=== PATIENT | male | born 1930 | race Caucasian/White ===

== ENCOUNTER 2017-09-12 03:50 | Inpatient (IN) | payer MEDICARE ==
[~2017-09-12] VITALS: Ht 185.4 cm; Wt 78.9 kg
[2017-09-12] VITALS (18 sets, daily range): BP systolic 41–247; BP diastolic 12–90
[2017-09-12] MEDS ORDERED: BAYER CHEWABLE81 MG PO (04:07)
[2017-09-12] MEDS ORDERED: LUMIGAN2.5 M1 OPHTHALMIC (04:09)
[2017-09-12] MEDS ORDERED: COLACE100 MG PO (04:10)
[2017-09-12] MEDS ORDERED: B12INJ (04:10)
[2017-09-12] MEDS ORDERED: IRON325 PO (04:10)
[2017-09-12] MEDS ORDERED: HYDROCODONE-AP1 EAC6 PO (04:12)
[2017-09-12 04:13] LABS: HEMATOCRIT 39.6 % (42.0-52.0); HEMOGLOBIN 12.4 gm/dL (14.0-18.0); MCH 28.2 pg (26.0-34.0); MCHC 31.2 g/dL (28.0-37.0); MCV 90.3 fL (80.0-100.0); MPV 10.3 fl. (7.2-11.1); NUCLEATED RBCS 0 /100WBC; PLATELET COUNT* 126 thou/uL (150-400); RBC 4.39 mil/uL (4.50-6.00); RDW-CV 16.5 % (10.5-14.5); WBC 11.4 thou/uL (4.0-11.0)
[2017-09-12] MEDS ORDERED: ZOCOR20 MG PO (04:13)
[2017-09-12] MEDS ORDERED: VITAMINC500 PO (04:14)
[2017-09-12] MEDS ORDERED: DEMECLOCYCLINE300 MG PO (04:14)
[2017-09-12] MEDS ORDERED: JUVEN PACKET1 EAC1 PO (04:14)
[2017-09-12] MEDS ORDERED: LOPRESSOR25 PO (04:15)
[2017-09-12] MEDS ORDERED: AUGMENTIN 875-1 EACH PO (04:16)
[2017-09-12] MEDS ORDERED: ACIDOPHILUS1 EAC3 PO (04:17)
[2017-09-12] MEDS ORDERED: NYAMYC15 GM TOP (04:18)
--- NOTE | 2017-09-12 04:20 | NUR ---
TALKED TO NURSE, VINCENZO AT [facility]. PT'S FAMILY HAS BEEN NOTIFIED. PT HAS HAD DIFFICULTY WITH CONSTIPATIO FOR A COUPLE OF DAYS. PT HAD BM TODAY
[2017-09-12] MEDS ORDERED: MIRALAX17 GM PO (04:21)
[2017-09-12 04:24] LABS: INR 1.1
[2017-09-12 04:25] LABS: ANION GAP 5 mmol/L (7-16); BUN 77 mg/dL (7-18); CALCIUM 9.5 mg/dL (8.5-10.1); CHLORIDE 101 mmol/L (98-107); CO2 31 mmol/L (21-32); CREATININE 1.3 mg/dL (0.6-1.3); GLUCOSE 100 mg/dL (70-99); POTASSIUM 5.3 mmol/L (3.5-5.1); SODIUM 137 mmol/L (136-145)
[2017-09-12 04:32] LABS: ALBUMIN 3.1 g/dL (3.4-5.0); ALKALINE PHOSPHATASE 218 U/L (46-116); LIPASE 67 U/L (73-393); SGOT 25 U/L (15-37); SGPT 26 U/L (30-65); TOTAL BILIRUBIN 0.8 mg/dL (<0.1-1.0); TOTAL PROTEIN 6.1 g/dL (6.4-8.2); TROPONIN-I LEVEL <0.06 ng/mL (<0.06)
[2017-09-12 05:46] LABS: ABSOLUTE LYMPHOCYTES 1.3 thou/uL (0.8-5.3); ABSOLUTE MONOCYTES 0.3 thou/uL (0.0-1.2); ABSOLUTE NEUTROPHILS 9.8 thou/uL (1.6-8.1); ANISOCYTOSIS 1+; PLATELET ESTIMATE DECREASED; POIKILOCYTOSIS 1+
[2017-09-12 07:03] LABS: URINE BILIRUBIN NEGATIVE (Negative); URINE BLOOD NEGATIVE (Negative); URINE CLARITY CLEAR; URINE COLOR YELLOW; URINE GLUCOSE-RANDOM NEGATIVE (Negative); URINE KETONES NEGATIVE (Negative); URINE LEUKOCYTES-REFLEX NEGATIVE (Negative); URINE NITRITE-REFLEX NEGATIVE (Negative); URINE PROTEIN 1+ (Negative); URINE UROBILINOGEN 0.2 E.U./dl (0.2-1.0)
[2017-09-12 07:19] LABS: BACTERIA-REFLEX None Seen /HPF (None Seen); MUCUS None Seen strn/LPF (None Seen); SQUAMOUS 0-3 Few /LPF (0-3); URINE RBC 0-2 Rare /HPF (0-2); URINE WBC-REFLEX 0-5 Rare /HPF (0-5)
[2017-09-12 07:20] LABS: CASTS None Seen /LPF (None Seen); CRYSTALS None Seen /LPF (None Seen)
--- NOTE | 2017-09-12 07:38 | NUR ---
PT'S SON, ANGELINA, WAS CALLED, PER REQUEST, TO TELL HIM HIS DAD IS BEING ADMITTED TO ROOM #229. ANGELINA VOICED APRECIATION FOR THE PHONE CALL.
[2017-09-12] MEDS ORDERED: MAALOX ADVANCE355 ML PO (08:40)
[2017-09-12] MEDS ORDERED: MICONAZOLE 745 GM TOP (08:45)
[2017-09-12] MEDS ORDERED: BISACODYL SUPP10 MG RECTAL (08:47)
[2017-09-12] MEDS ORDERED: MILK OF MA2400 MG/10 PO (08:48)
[2017-09-12] MEDS ORDERED: VITAMIN B-12500 MCG PO (08:49)
[2017-09-12] MEDS ORDERED: TYLENOL325 MG PO (08:53)
[2017-09-12] MEDS ORDERED: FLEET ENEMA133 ML RECTAL (08:53)
--- NOTE | 2017-09-12 08:57 | NUR ---
RECEIVED REPORT. PT TRANSFERRED TO ROOM 229 VIA CART. VSS. CARDIAC MONITORING IN PLACE. ADMISSION HISTORY AND ASSESSMENT COMPLETED CHARTED. PT ALERT AND ORIENTED. PT ON 2L PER NC. C-COLLAR IN PLACE FROM PREVIOUS FALL WITH FRACTURES. PT HAS VARIOUS SCABS ON BILATERAL UPPER EXTREMITIES. ALSO NOTED VARIOUS SKIN TEARS, EXCORIATION/YEAST NOTED TO BILATERAL GROINS, BOGGY HEELS, AND PRESSURE ULCER TO COCCYX ON ADMISSION PICUTRES TAKEN AND PLACED ON CHART. PT DENIES ANY CURRENT PAIN, HOWEVER GRIMACES WITH MOVEMENT. IVF INFUSING PER OFRDERS. PT ORIETNED TO ROOM AND CALL LIGHT. PT'S GRANDSON HERE TO VISIT PT. GRANDSON UNHAPPY PT IS AT [facility] STATING "I'VE HEARD BAD THINGS ABOUT THIS PLACE." REASSURANCE PROVIDED. MEPILEX BORDERS UNDER C-COLLER ON CHEST TO PREVENT BREAKDOWN. CALL LIGHT IS WITHIN REACH. FALL PRECATIONS IN PLACE. WILL CONTINUE TO MOTNIOR.
--- NOTE | 2017-09-12 10:09 | NUR ---
CM SPOKE TO THE PATIENT TO DISCUSS HOME SITUATION, DISCHARGE PLANNING, AND TO INFORM OF THE ROLE OF CM. PATIENT ALERT AND ORIENTED. PATIENT INDEPENDENT WITH ADL'S AND COOKS. PATIENT RESIDES AT HOME WITH SPOUSE. PATIENT INFORMS THAT HIS SON PROVIDES TRANSPORTATION TO APPOINTMENTS, AND HIS GRANDSON ASSIST WITH [employer] AND CLEANING HIS HOME. PATIENT USES A WALKER FOR MOBILITY. PATIENT HAS A HX OF HH, BUT COULD NOT RECALL THE NAME. [facility] CM WILL REMAIN AVAILABLE TO ASSIST AND FOLLOW NEEDED.
--- NOTE | 2017-09-12 16:28 | EKG ---
[place] [address] ELECTROCARDIOGRAM REPORT Name: ADA JUDD V Room: [address] IN .R.#: [id number] Admission: 09/12/17 Attend Phys: Srikanth Jones Discharge: Date of : [birth year] Report #: [id number] THIS REPORT FOR: //name// [facility] ED Test Date: 2017-09-12 Test Time: 04:07:15 Pat Name: ADA JUDD Department: Room: Gender: Band Tier: SARAN Huber : 1930 Requested By: Edd Hyatt Order Number: [id number] MD: Ada Huddleston Measurements Intervals [place] Rate: 114 P: [place]: QRS: 88 QRSD: 140 T: 15 QT: 393 QTc: 542 Interpretive Statements Atrial fibrillation Right bundle branch block No previous ECG available for comparison Electronically Signed On 09-12-2017 16:28:23 CDT by Ada Huddleston [email or web address] <ELECTRONICALLY SIGNED> By: Ada Huddleston MD, [facility] 09/12/17 1628 [id number] Ada Huddleston MD, FACC /EPI
[2017-09-12 17:20] LABS: CLARITY TURBID; COLOR TAN; SOURCE L PLEURAL; TOTAL VOLUME 60 ml
[2017-09-12 17:22] LABS: TOTAL CELL COUNT 142970 /mm3
[2017-09-12 17:24] LABS: BF RBC 35570 /mm3
--- NOTE | 2017-09-12 17:30 | NUR ---
164-PT BACK TO ROOM FROM THORACENTESIS. VSS. IVF RESTARTED. 1715 PT'S FAMILY CALLED OUT SAYING PT FELT SOA. UPON ASSESSMENT PT MORE PALE, DROWSY, BP STABLE HR IN THE 100'S O2 SAT IN THE 80'S INCREASED TO 4L PER NC PT'S RESPIRATIONS IN THE 30'S NOTIFIED DR. ANDRADE OF POSSIBLE NEEDS FOR LASIX. IV LASIX GIVEN AND ZOFRAN GIVEN. PT HAVING MORE ABDOMINAL PAIN. ABD SOFT BUT SLIGHTLY DISTENDED. DR. ANDRADE NOTIFIED OF ALL THE ABOVE AND RECEIVED ORDERS TO TRANSFER TO ICU. REPORT GIVEN TO KRISTOFER. PT'S FAMILY INFORMED.
[2017-09-12 17:54] LABS: BF LYMPHOCYTES ND %; BF MONOCYTES ND %
[2017-09-12 17:55] LABS: BF POLYS ND %
[2017-09-12 18:06] LABS: BE 1.4 mmol/L (-2 to +3); HCO3 26.7 mmol/L (22.0-26.0); PCO2 45.9 mmHg (35.0-45.0); pH 7.382 (7.340-7.450)
--- NOTE | 2017-09-12 19:41 | NUR ---
PATIENT ARRIVED AT 1810 FROM 2E. PATIENT LETHARGIC, BUT OX4. PATIENT EXTREMELY TACHYPNIC UPON ARRIVING, BUT RATING PAIN AT 10/[address] LUPE JEAN, PRN FENTANYL GIVEN. PATIENT ABLE TO REST COMFORTABLY FOR SHORT PERIOD OF TIME, BUT IS NOW AGAIN RESTLESS. UNABLE TO TAKE PO MEDICATIONS. DX OF COLITIS. PATIENT ALSO HAS VERY LARGE LEFT EMPYEMA PER CT/XRAY STUDIES. UPON ARRIVING, PATIENT ON 4L NC. ABG PO2 CRITICALLY HIGH ON 4L, TITRATED TO 2L. O2 SAT 99%. SPOKE WITH DR GUDION FROM PULMONOLOGY ABOUT DR. SÁNCHEZ'S PLANS TO TRANSFER PATIENT TO ANOTHER FACILITY WHO HAS A CARDIOTHORACIC SURGERON. DR GUDINO STATED DR SÁNCHEZ HAD DISCUSSED THIS WITH DR FOX, BUT THAT DR SÁNCHEZ WILL SEE PATIENT IN THE MORNING TO DISCUSS POSSIBLE TRANSFER. PATIENT TRACING A-FIB WITH CONTROLLED RATE AND RIGHT BUNDLE BRANCH BLOCK ON [employer]. PATIENT HAS MULTIPLE WOUNDS NOTED TO BOTTOM, NECK, AND SKIN TEAR TO RIGHT UPPER ARM. WOUND PHOTOS TAKEN BY MORNING RN. SWELLING NOTED TO BILATERAL LOWER EXTREMITIES. PATIENT HAS NOTED HX OF EDEMA. OLIVAREZ IN PLACE FROM ER, NOW APPEARS TO HAVE BRIANA RED BLOOD. PATIENT HAD RECENT FALL, C-SPINE COLLAR IN PLACE. DOES NOT APPEAR TO FIT PATIENT CORRECTLY HAS CHIN PIECE IS OVER PATIENT'S MOUTH. REPORT GIVEN TO WILY AN.
[2017-09-12 19:55] LABS: ALBUMIN 1.8 g/dL (3.4-5.0); CALCIUM 8.1 mg/dL (8.5-10.1); CREATININE 1.5 mg/dL (0.6-1.3); TOTAL BILIRUBIN 0.7 mg/dL (<0.1-1.0); TOTAL PROTEIN 3.8 g/dL (6.4-8.2)
[2017-09-12 20:39] LABS: ABSOLUTE LYMPHOCYTES 1.8 thou/uL (0.8-5.3); ABSOLUTE MONOCYTES 0.4 thou/uL (0.0-1.2); ABSOLUTE NEUTROPHILS 7.7 thou/uL (1.6-8.1); BASOPHILS 0.3 %; EOSINOPHILS 0.2 %; LYMPHOCYTES 18.1 %; MCH 29.2 pg (26.0-34.0); MCHC 31.7 g/dL (28.0-37.0); MCV 92.4 fL (80.0-100.0); MONOCYTES 3.7 %; MPV 10.3 fl. (7.2-11.1); NUCLEATED RBCS 1 /100WBC; PLATELET COUNT* 68 thou/uL (150-400); POLYS 77.7 %; RBC 2.04 mil/uL (4.50-6.00); RDW-CV 16.3 % (10.5-14.5); WBC 9.9 thou/uL (4.0-11.0)
[2017-09-12 20:44] LABS: HEMATOCRIT 18.9 % (42.0-52.0)
--- NOTE | 2017-09-12 21:30 | NUR ---
PT INTUBATED POST CARDIOPULMONARY ARREST. PT AWAKE AND MOVING AT 2119. RECIEVED VERBAL ORDER TO PLACE SOFT BILATERAL SOFT WRIST RESTRAINTS TO MAINTAIN ET TUBE, CENTRAL LINE AND OLIVAREZ CATHETER. RESTRAINTS PLACED AT 2129. PORTABLE CHEST XRAY DONE AT 2014 TO CONFIRM CENTRAL LINE PLACEMENT PER DR ALONSO FROM ED. ET TUBE AND OG TUBE CONFIRMED PER CHEST XRAY. OK TO USE CENTRAL LINE GIVEN PER DR ALONSO. OLIVAREZ TEMP PROBE PLACED. STAT LABS AND BLOOD TRANSFUSION ORDERS GIVEN PER DR ANDRADE. PT NOT CANIDATE FOR CODE ICE AT THIS TIME DUE TO ACTIVE GI BLEEDING.
[2017-09-12 21:50] LABS: APTT 70.9 Seconds (25.0-31.3); PROTIME 16.7 Seconds (9.20-11.50)
[2017-09-12 21:58] LABS: INR 1.7
--- NOTE | 2017-09-13 02:42 | NUR ---
ASSUMED CARE OF PATIENT FROM DAY WILY MINER @ 193, PT MOANING, UNABLE TO VERBALIZE WHAT WAS BOTHERING HIM. PER REPORT, PT WAS ALERT AND ORIENTED WHEN HE ARRIVED ON THE UNIT. NOW LISTLESS, STARING WITHOUT TRACKING, CANNOT STATE NAME, PLACE, OR SITUATION. RR = 9, REMAINS ON 2L NC, SPO2 = 82% LUNGS SOUNDS COARSE CRACKLES. URINE IN OLIVAREZ BAG DARK RED. ILL-FITING COLLAR NOTED, RESTING ON PT'S MOUTH. SKIN JAUNDICED, EDEMA TO ABDOMEN,BOTH UPPER AND LOWER EXTREMITIES. PAGED DR ANDRADE TO NOTIFY CHANGE OF CONDITION.
--- NOTE | 2017-09-13 03:00 | NUR ---
09/12 AT 2004: DR ANDRADE RETURNED PAGE, WAS NOTIFIED RR=5, PT DISPLAYING AGONAL BREATHING, WITH EXTREMELY LOW BP. CALLING TO OBTAIN POSSIBLE INTUBATION ORDERS. WHILE TALKING TO DR ANDRADE, PT BECAME PULSELESS WITH PEA, CODE BLUE INITIATED, ER DR AND CODE TEAM ARRIVED AT BEDSIDE. DR ANDRADE STATED ALL FURTHER ORDERS WILL BE GIVEN PER ER DR, AND ALL VENT MANAGEMENT ORDERS TO BE OBTIANED FROM DR GUDINO. PT INTUBATED, RETURN OF ROSC, PT PLACED ON MECHANICAL VENTILATION AT 2014. FURTHER ORDERS FROM LUPE TO DISREGARD CODE ICE D/T HGB = 6. NEW ORDERS NOTED, SEE CHART. BOLUS PER ER INFUSING, ORDERS TO INITIATE LEVOPHED AND VASOPRESSIN PER LUPE, FURTHER ORDERS FOR STAT REPEAT H/H AND TRANSFUSE 2 UNITS PRBCs IF <6. LEVOPHED STARTED, DR ALONSO ORDERED EPINEPHRINE DRIP INSTEAD OF THE VASOPRESSIN NOW. EKG AND STAT LABS DONE. VERSED FOR SEDATION.
--- NOTE | 2017-09-13 07:44 | CON ---
[address] [address] CONSULTATION Name: CARLENEMCKENZIEADA Safia Room: [address] IN M.R.#: [id number] Admission: 09/12/17 Attend Phys: Srikanth Jones Discharge: 09/12/17 Date of : [birth year] Report #: [id number] THIS REPORT FOR: //name// CC: Christiano Farris DATE OF SERVICE: 09/12/2017 REQUESTING PHYSICIAN: Dr. Dumont. INDICATION FOR CONSULTATION: Pleural effusions, suspected empyema. HISTORY OF PRESENT ILLNESS: This is an 87-year-old gentleman. The patient does have a history of previous cardiac disease and has had stents. He does not have a previous history of respiratory disease. The patient, however, has had exposure to asbestos. He was recently admitted to [facility]. The patient at that time had a fall. He was noted to have a C2 and C3 fracture. He was also reported to have had pelvic fractures. The patient since then has had limited mobility. There is mention of a left-sided chronic pleural effusion on his records from [facility]. The patient, however, states that he was not previously aware of a pleural effusion on the left side. The patient was treated conservatively for his fractures. He still has a cervical collar in place. While he was at the [place] where he was transferred to from [facility], the patient's condition began to deteriorate. He had at least one episode of diarrhea, was having abdominal pain, was also hypotensive, complaining of increasing weakness and therefore was transferred to this hospital. The patient at this time is complaining of shortness of breath. He does have a cough. He does report sputum production. He is not aware of the color of the sputum. The patient does have rattling mucus in his throat at the time of examination. He is currently receiving fluid resuscitation. He has had borderline blood pressures; however, he has not been on pressors. The patient is continuing to oxygenate adequately with 2 liters of oxygen in place. He currently is not febrile. He does have some swelling of lower extremities. There is a 12-point review of systems performed, which is negative except as mentioned above. PAST MEDICAL HISTORY: Recent C2 and C3 fractures, recent pelvic fractures, coronary artery disease, status post stents. I do not have a previous measure of his left ventricular ejection fraction available. Hyponatremia. Note that he is on demeclocycline. Hypertension. Recent fall with admission to [facility] as described above. There is mention of a chronic left-sided pleural effusion reported to have first been noticed in 11/2016 on the records from [facility]. Previous fracture of nasal bone, hyperlipidemia, benign prostatic hypertrophy, appendicitis, keratosis, status post CABG in 2002, gastroesophageal reflux disease, shingles, skin cancer, status post cholecystectomy, [place] [address] CONSULTATION Name: ADA JUDD V Room: [address] IN ..#: [id number] Admission: 09/12/17 Attend Phys: Srikanth Jones Discharge: 09/12/17 Date of : [birth year] Report #: [id number] colonoscopy, eye surgery. SOCIAL HISTORY: He says he smoked when he was in his 20s, but since then has been a lifetime nonsmoker. 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 He does not have a history of heavy alcohol use. ALLERGIES: No known drug allergies. CURRENT MEDICATIONS: Listed in [employer], reviewed. FAMILY HISTORY: Heart disease, prostate cancer and hyperlipidemia. PHYSICAL EXAMINATION: GENERAL: He is alert, awake and oriented, able to provide only a limited history. He is on 2 liters nasal cannula. VITAL SIGNS: He is saturating at 98%, but he does appear to be short of breath at rest. He does have rattling mucus in his throat. His pulse is 65 and blood pressure 120/87. He is saturating 96%. He is on 2 liters nasal cannula. He is afebrile with temperature last recorded at 36.5. HEENT: Head is normocephalic and atraumatic. Pupils are equal and constricted. There is no throat erythema. NECK: Does not show raised JVP, asymmetry, mass or lymph node. There is a cervical collar in place. CHEST: Show symmetrical expansion on inspection and palpation. On auscultation, however, breath sounds are decreased at the left lung base. There are a few scattered expiratory wheezes heard. HEART: Regular. There is no murmur. ABDOMEN: Soft and nontender. EXTREMITIES: Lower extremities show trace edema. There is no calf tenderness. SKIN: Dry and intact. NEUROLOGICAL: He is moving all extremities bilaterally equally and spontaneously with no focal deficit identified. LABORATORY DATA: The patient's CT chest films as well as report are reviewed. In fact, I called and discussed with the radiologist as well. There are bilateral infiltrates. There are bilateral pleural effusions. There is a loculated pleural effusion at the left lung base, the suspicion as to whether this could be an empyema. Hemothorax is also possible. The patient's CT abdomen and pelvis report is in [employer] and this is also reviewed. The patient's lab work, which is consistent with intravascular volume depletion in [facility] reviewed. ASSESSMENT AND PLAN: 1. Pulmonary infiltrates with bilateral pleural effusion/suspected empyema: I called and discussed with the radiologist. There is a large collection of pleural fluid in the left side, which does appear to be contiguous. While [address] [place] [address] CONSULTATION Name: ADA JUDD V Room: [address]#: [id number] Admission: 09/12/17 Attend Phys: Srikanth Jones Discharge: 09/12/17 Date of : [birth year] Report #: [id number] taking precautions as the patient has had recent trauma to his C-spine as well as pelvis, we will see if it is possible to do a thoracentesis. If thoracentesis is performed, then we will do a CT chest without contrast after the thoracentesis and reevaluate. If the pleural fluid is not adequately evacuated, then I would favor transferring this patient to a facility where a cardiothoracic surgeon is available. Note that the patient is reported to have a history of pleural effusion on the left side in the past as well. In addition to empyema, the possibility of mesothelioma is also considered in the differential. 2. Pneumonia: At this time, I would continue with Zosyn. I took him off Levaquin, but I added vancomycin. 3. Hypotension/intravascular volume depletion: I agree with fluid resuscitation as ordered by the primary service. Note that the patient is on demeclocycline and does have a history of hyponatremia. 4. Bronchospasm: He does not have a previous history of obstructive lung disease, but he did appear bronchospastic on exam. I did order Solu-Medrol. Suggest following and adjusting for response. 5. Possible colitis: This is mentioned on the patient's CT abdomen and pelvis report. I am not aware of any antibiotics that the patient has received at [facility] recently. In case he has any more loose stools, I suggest obtaining a stool for C. diff and consider adding metronidazole. The patient, however, has been on demeclocycline for a long period of time. 6. High risk for aspiration: Recommend aspiration precautions. 7. Recent C2 and C3 fractures: The patient has a cervical collar. 8. Recent pelvic fractures. Thanks for this consultation. <ELECTRONICALLY SIGNED> By: Oliva Richardson MD 09/13/17 0744 [id number] 1917Adilcia Davidson MD /nt
[2017-09-13 15:08] LABS: BODY FLUID AMYLASE 35 U/L (()); BODY FLUID PROTEIN 3.5 g/dL (())
[2017-09-13 16:10] LABS: BODY FLUID LDH 5309 IU/L (()); BODY FLUID PH 7.4 (Not Estab.)
--- NOTE | 2017-09-14 11:13 | EKG ---
[place] [address] ELECTROCARDIOGRAM REPORT Name: BINTAADA Safia Room: [address] IN M.R.#: [id number] Admission: 09/12/17 Attend Phys: Srikanth Jones Discharge: 09/12/17 Date of : [birth year] Report #: [id number] THIS REPORT FOR: //name// [facility] Test Date: 2017-09-12 Test Time: 22:16:30 Pat Name: ADA JUDD Department: Room: [address] Gender: M Student Development Specialist: CWAIDROGER : 1930 Requested By: Александр Driver Order Number: [id number] MD: Kayode Childers Measurements Intervals [place] Rate: 110 P: [place]: QRS: 89 QRSD: 134 T: -67 QT: 366 QTc: 496 Interpretive Statements Incomplete analysis due to missing data in precordial lead(s) Atrial fibrillation Right bundle branch block Missing lead(s): V3 Compared to ECG 09/12/2017 04:07:15 No significant changes Electronically Signed On 09-14-2017 11:13:07 CDT by Kayode Childers [email or web address] <ELECTRONICALLY SIGNED> By: Kayode Childers MD, [facility] 09/14/17 1113 2216 2216 Kayode Childers MD, [facility] /EPI
[2017-09-14 18:22] LABS: SOURCE THORACENTESIS
[2017-09-14 18:23] LABS: SOURCE THORACENTESIS
== END 2017-09-12 22:34 | DRG 871 ==
LOC: M.ERS 03:50 → M.TBA-ER 06:51 → M.2W 06:51 → M.ICU 18:13
PROVIDERS: Family Medicine; Internal Medicine; Internal Medicine Critical Care Medicine; ADMIT Internal Medicine
PROC: 5A1935Z Respiratory Ventilation, Less than 24 Consecutive Hours (ICD-10-PCS; principal; 2017-09-12)
PROC: 5A12012 Performance of Cardiac Output, Single, Manual (ICD-10-PCS; principal; 2017-09-12)
PROC: 05H633Z Insertion of Infusion Device into Left Subclavian Vein, Percutaneous Approach (ICD-10-PCS; principal; 2017-09-12)
PROC: 0BH17EZ Insertion of Endotracheal Airway into Trachea, Via Natural or Artificial Opening (ICD-10-PCS; principal; 2017-09-12)
PROC: 0W9B3ZX Drainage of Left Pleural Cavity, Percutaneous Approach, Diagnostic (ICD-10-PCS; principal; 2017-09-12)
DX: A41.9 Sepsis, unspecified organism (principal); J96.00 Acute respiratory failure, unspecified whether with hypoxia or hypercapnia; J69.0 Pneumonitis due to inhalation of food and vomit; N17.0 Acute kidney failure with tubular necrosis; D65 Disseminated intravascular coagulation [defibrination syndrome]; E44.0 Moderate protein-calorie malnutrition; E23.2 Diabetes insipidus; D62 Acute posthemorrhagic anemia; M19.90 Unspecified osteoarthritis, unspecified site; K21.9 Gastro-esophageal reflux disease without esophagitis; E78.5 Hyperlipidemia, unspecified; E86.0 Dehydration; I12.9 Hypertensive chronic kidney disease with stage 1 through stage 4 chronic kidney disease, or unspecified chronic kidney disease; I95.9 Hypotension, unspecified; J98.01 Acute bronchospasm; R53.81 Other malaise; R57.8 Other shock; Z66 Do not resuscitate; K52.9 Noninfective gastroenteritis and colitis, unspecified; N18.9 Chronic kidney disease, unspecified; C45.9 Mesothelioma, unspecified; I25.10 Atherosclerotic heart disease of native coronary artery without angina pectoris; N40.0 Benign prostatic hyperplasia without lower urinary tract symptoms; Z79.2 Long term (current) use of antibiotics; Z79.82 Long term (current) use of aspirin; Z79.899 Other long term (current) drug therapy; Z95.5 Presence of coronary angioplasty implant and graft; Z95.1 Presence of aortocoronary bypass graft; Z85.828 Personal history of other malignant neoplasm of skin; Z90.49 Acquired absence of other specified parts of digestive tract; Z98.890 Other specified postprocedural states; Z87.891 Personal history of nicotine dependence; Z68.23 Body mass index [BMI] 23.0-23.9, adult; Z91.81 History of falling; Z87.81 Personal history of (healed) traumatic fracture; Z82.49 Family history of ischemic heart disease and other diseases of the circulatory system; Z80.42 Family history of malignant neoplasm of prostate; Z84.89 Family history of other specified conditions